=== PATIENT | female | born 1960 | race Two or more races ===

== ENCOUNTER 2018-09-08 03:16 | Emergency (ER) | payer SELFPAY ==
[~2018-09-08] VITALS: Ht 160 cm; Wt 65.8 kg
[2018-09-08 03:25] VITALS: BP 142/80
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
--- NOTE | 2018-09-08 03:34 | NUR ---
RADIOLOGY AT BEDSIDE FOR XRAY
[2018-09-08] MEDS ORDERED: HYDROCODONE/APAP 5/325MG 1 EACH TABLET ONE (04:25)
[2018-09-08] MEDS ORDERED: HYDROCODONE/APAP 5/325MG 1 EACH TABLET PO ONE (04:30)
--- NOTE | 2018-09-08 05:45 | NUR ---
Patient discharged to home in stable condition. Written and verbal after care instructions given. Patient verbalizes understanding of instruction.
== END 2018-09-08 05:53 | disposition home or self-care (01) ==
LOC: ER 03:18
DX: S83.8X2A Sprain of other specified parts of left knee, initial encounter (principal); S83.8X1A Sprain of other specified parts of right knee, initial encounter; E11.9 Type 2 diabetes mellitus without complications; V49.49XA Driver injured in collision with other motor vehicles in traffic accident, initial encounter; Y93.89 Activity, other specified; Y92.413 State road as the place of occurrence of the external cause; Y99.8 Other external cause status
CPT/HCPCS: 73564 ×2; 99283; A4606; Z7610